=== PATIENT | female | born 1985 | race Caucasian/White ===

== ENCOUNTER 2016-10-16 10:43 | Emergency (ER) | payer MEDICAID ==
--- NOTE | 2016-10-16 11:52 | Emergency Department Record ---
History of Present Illness - General Chief complaint: Extremity Problem Stated complaint: RIGHT ARM PAIN Time Seen by Provider: 10/16/16 11:07 Source: Patient, RN notes reviewed Mode of Arrival: Ambulatory - History of Present Illness Initial comments: right elbow pain and she is doing heavy lifting at work. Onset/Timin -: Week(s) Location: Right, Elbow, Forearm History of Same: No Radiation: Proximal, Distal Severity scale (1-10): 5 Quality: Sharp Consistency: Constant Improves with: Immobilization Worsens with: Other Associated Symptoms: Denies other symptoms - Related Data Home Medications Medication Instructions Recorded Confirmed Last Taken Albuterol Sulfate [Proventil Hfa] 1 - 2 puff INH .EVERY 4-6 HOURS PRN 10/20/14 10/16/16 05/07/15 Esomeprazole Magnesium [Nexium] 40 mg PO DAILY 10/16/16 10/16/16 Unknown Previous Rx's Medication Instructions Recorded Naproxen [Naprosyn] 500 mg PO Q12H #20 tab. 10/16/16 Allergies Allergy/AdvReac Type Severity Reaction Status Date / Time No Known Drug Allergies Allergy Verified 10/16/16 10:52 Travel Screening - Travel/Exposure Within Last 30 Days Have you traveled within the last 30 days?: No Review of Systems Reviewed: No additional complaints except as noted below Constitutional: Reports: As per HPI. Denies: Chills, Fever, Malaise, Night sweats, Weakness, Weight change Eyes: Reports: As per HPI. Denies: Eye discharge, Eye pain, Photophobia, Vision change ENT: Reports: As per HPI. Denies: Congestion, Dental pain, Ear pain, Epistaxis , Hearing loss, Throat pain Respiratory: Reports: As per HPI. Denies: Cough, Dyspnea, Hemoptysis, Stridor, Wheezes Cardiovascular: Reports: As per HPI. Denies: Arrhythmia, Chest pain, Dyspnea on exertion, Edema, Murmurs, Orthopnea, Palpitations, Paroxysmal nocturnal dyspnea, Rheumatic Fever, Syncope Endocrine: Reports: As per HPI. Denies: Fatigue, Heat or cold intolerance, Polydipsia, Polyuria Gastrointestinal: Reports: As per HPI. Denies: Abdominal pain, Constipation, Diarrhea, Hematemesis, Hematochezia, Melena, Nausea, Vomiting Genitourinary: Reports: As per HPI. Denies: Abnormal menses, Discharge, Dyspareunia, Dysuria, Frequency, Hematuria, Incontinence, Retention, Urgency Musculoskeletal: Reports: As per HPI, Arthralgia (right elbow). Denies: Back pain, Gout, Joint swelling, Myalgia, Neck pain Skin: Reports: As per HPI. Denies: Bruising, Change in color, Change in hair/ nails, Lesions, Pruritus, Rash Neurological: Reports: As per HPI. Denies: Abnormal gait, Confusion, Headache, Numbness, Paresthesias, Seizure, Tingling, Tremors, Vertigo, Weakness Psychiatric: Reports: As per HPI. Denies: Anxiety, Auditory hallucinations, Depression, Homicidal thoughts, Suicidal thoughts, Visual hallucinations Hematological/Lymphatic: Reports: As per HPI. Denies: Anemia, Blood Clots, Easy bleeding, Easy bruising, Swollen glands Past Medical History - SOCIAL HISTORY Smoking Status: Light tobacco smoker (<10/day) Alcohol Use: None Drug Use: None - RESPIRATORY Hx Respiratory Disorders: Yes Hx Asthma: Yes - CARDIOVASCULAR Hx Cardio Disorders: No - NEURO Hx Neuro Disorders: No - GI Hx GI Disorders: Yes Hx Diverticulitis: Yes Hx Reflux: Yes - Hx Genitourinary Disorders: No - ENDOCRINE Hx Endocrine Disorders: No - MUSCULOSKELETAL Hx Musculoskeletal Disorders: No - PSYCH Hx Psych Problems: No - HEMATOLOGY/ONCOLOGY Hx Hematology/Oncology Disorders: No Family Medical History Any Significant Family History?: Yes Hx HTN: Mother Physical Exam - General General Appearance: Alert, Oriented x3, Cooperative, No acute distress - Head Head exam: Normal inspection - Eye Eye exam: Normal appearance, PERRL Pupils: Normal accommodation - ENT ENT exam: Normal exam, Mucous membranes moist, Normal external ear exam, Normal orophraynx, TM's normal bilaterally Ear exam: Normal external inspection. negative: External canal tenderness Nasal Exam: Normal inspection. negative: Discharge, Sinus tenderness Mouth exam: Normal external inspection, Tongue normal Teeth exam: Normal inspection. negative: Dental caries Throat exam: Normal inspection. negative: Tonsillar erythema, Tonsillar exudate - Neck Neck exam: Normal inspection, Full ROM. negative: Tenderness - Respiratory Respiratory exam: Normal lung sounds bilaterally. negative: Respiratory distress - Cardiovascular Cardiovascular Exam: Regular rate, Normal rhythm, Normal heart sounds - GI/Abdominal GI/Abdominal exam: Soft, Normal bowel sounds. negative: Tenderness - Rectal Rectal exam: Deferred - exam: Deferred - Extremities Extremities exam: Normal inspection, Full ROM, Normal capillary refill, Tenderness (pain located on the lateral epicondylar area) - Back Back exam: Reports: Normal inspection, Full ROM. Denies: Muscle spasm, Rash noted, Tenderness - Neurological Neurological exam: Alert, Normal gait, Oriented X3, Reflexes normal - Psychiatric Psychiatric exam: Normal affect, Normal mood - Skin Skin exam: Dry, Intact, Normal color, Warm Course Vital Signs 10/16/16 10:46 Temperature 98.7 F Pulse Rate 82 Respiratory 20 Rate Blood Pressure 145/92 Pulse Ox 100 Disposition Clinical Impression: Left elbow tendinitis Disposition: Home, Self-Care Condition: (1) Good Instructions: Tendinitis (ED) Additional Instructions: naprosyn twice a day follow up with family Prescriptions: Naproxen [Naprosyn] 500 mg PO Q12H #20 tab.dr Forms: Patient Portal Access Time of Disposition: 11:52
--- NOTE | 2016-10-18 09:54 | RADIOLOGY REPORT ---
EXAM: RIGHT ELBOW, THREE VIEWS HISTORY: LIFTING INJURY THREE WEEKS AGO, RIGHT ELBOW PAIN. TECHNIQUE: Three views of the right elbow were obtained. Comparison: None. Encounter: Initial. FINDINGS: No bone or joint abnormality. IMPRESSION: NEGATIVE RIGHT ELBOW EXAMINATION. JOB NUMBER: [id number] MTDD
== END 2016-10-16 12:06 | disposition home or self-care (01) ==
LOC: ER 10:43
DX: M77.12 Lateral epicondylitis, left elbow (principal)
CPT/HCPCS: 99283

== ENCOUNTER 2016-10-28 17:53 | Emergency (ER) | payer MEDICAID ==
[2016-10-28] MEDS ORDERED: ONDANSETRON HCL IV 4 MG/2 ML VIAL IVP ONE (18:43)
[2016-10-28] MEDS ORDERED: MORPHINE SULFATE 5 MG/ML PFS IVP ONE (18:43)
[2016-10-28] MEDS ORDERED: 0.9 % SODIUM CHLORIDE 1000ML 1,000 ML IV SCH (18:45)
--- NOTE | 2016-10-28 18:48 | Emergency Department Record ---
History of Present Illness - General Chief Complaint: Abdominal Pain Stated Complaint: L ABD PAIN Time Seen by Provider: 10/28/16 18:40 Source: Patient Mode of Arrival: Ambulatory Limitations: No limitations - History of Present Illness Initial Comments: 31 yo female presents to ED with a CC of loose stools that began earlier today followed by the onset of "sharp", LLQ pain. Patient reports the pain has been present for 3 hours, reports a history of diverticulitis 1 year ago, but was not as painful. Patient is s/p abhishek. Patient denies fevers, chills, nausea, or vomiting symptoms. Patient reports a history significant for diverticulitis and GERD. -: Awoke with symptoms Location: LLQ Radiation: None Migration to: No migration Severity: Severe Quality: Sharp, Other Consistency: Constant Improves With: Nothing Worsens With: Eating, Other (urination) Associated Symptoms: Diarrhea - Related Data LMP (females 10-50): Unknown Patient : No Home Medications Medication Instructions Recorded Confirmed Last Taken Albuterol Sulfate [Proventil Hfa] 1 - 2 puff INH .EVERY 4-6 HOURS PRN 10/20/14 10/28/16 05/07/15 Esomeprazole Magnesium [Nexium] 40 mg PO DAILY 10/16/16 10/28/16 Unknown Previous Rx's Medication Instructions Recorded Ciprofloxacin HCl [Cipro] 500 mg PO Q12HR #20 tablet 10/28/16 Metronidazole [Flagyl] 500 mg PO TID #30 tablet 10/28/16 Ondansetron [Zofran Odt] 4 mg PO Q6H PRN #20 tab.rapdis 10/28/16 Allergies Allergy/AdvReac Type Severity Reaction Status Date / Time No Known Drug Allergies Allergy Verified 10/28/16 18:23 Travel Screening - Travel/Exposure Within Last 30 Days Have you traveled within the last 30 days?: No - Travel/Exposure Within Last Year Have you traveled outside the [place] in the last year?: No - Additonal Travel Details Have you been exposed to anyone with a communicable illness?: No - Travel Symptoms Symptom Screening: None Review of Systems Constitutional: Denies: Chills, Fever, Malaise, Night sweats Eyes: Denies: Eye discharge, Eye pain ENT: Denies: Congestion, Epistaxis, Hearing loss Respiratory: Denies: Cough, Dyspnea Cardiovascular: Denies: Chest pain, Dyspnea on exertion Endocrine: Denies: Fatigue, Heat or cold intolerance Gastrointestinal: Reports: Abdominal pain, Diarrhea. Denies: Nausea, Vomiting Genitourinary: Denies: Frequency, Hematuria, Incontinence, Retention Musculoskeletal: Denies: Arthralgia, Back pain, Gout, Joint swelling Skin: Denies: Bruising, Change in color Neurological: Denies: Abnormal gait, Confusion, Headache, Seizure Psychiatric: Denies: Anxiety Hematological/Lymphatic: Denies: Anemia, Blood Clots Past Medical History - SOCIAL HISTORY Smoking Status: Light tobacco smoker (<10/day) Alcohol Use: None Drug Use: None - RESPIRATORY Hx Respiratory Disorders: Yes Hx Asthma: Yes - CARDIOVASCULAR Hx Cardio Disorders: No - NEURO Hx Neuro Disorders: No - GI Hx GI Disorders: Yes Hx Diverticulitis: Yes Hx Reflux: Yes - Hx Genitourinary Disorders: No - ENDOCRINE Hx Endocrine Disorders: No - MUSCULOSKELETAL Hx Musculoskeletal Disorders: No - PSYCH Hx Psych Problems: No - HEMATOLOGY/ONCOLOGY Hx Hematology/Oncology Disorders: No Family Medical History Any Significant Family History?: Yes Hx HTN: Mother Physical Exam - General General Appearance: Alert, Oriented x3, Cooperative, Moderate distress (tearful on exam due to pain symptoms) Limitations: No limitations - Head Head exam: Atraumatic, Normocephalic, Normal inspection Head exam detail: negative: Abrasion, Contusion, Goddard's sign, General tenderness, Hematoma, Laceration - Eye Eye exam: Normal appearance. negative: Conjunctival injection, Periorbital swelling, Periorbital tenderness, Scleral icterus - ENT Ear exam: negative: Auricular hematoma, Auricular trauma Nasal Exam: negative: Active bleeding, Discharge, Dried blood, Foreign body Mouth exam: negative: Drooling, Laceration, Muffled voice, Tongue elevation - Neck Neck exam: Normal inspection. negative: Meningismus, Tenderness - Respiratory Respiratory exam: Normal lung sounds bilaterally. negative: Respiratory distress, Rhonchi, Stridor, Wheezes - Cardiovascular Cardiovascular Exam: Regular rate, Normal rhythm, Normal heart sounds - GI/Abdominal GI/Abdominal exam: Soft, Tenderness (TTP mid-left abdomen, no reboound or guarding present). negative: Pulsatile mass, Rebound, Rigid - Rectal Rectal exam: Deferred - exam: Deferred - Extremities Extremities exam: Normal inspection. negative: Pedal edema, Tenderness - Back Back exam: Denies: CVA tenderness (R), CVA tenderness (L) - Neurological Neurological exam: Alert, Normal gait, Oriented X3 - Psychiatric Psychiatric exam: Normal affect, Normal mood - Skin Skin exam: Normal color. negative: Abrasion Type of lesion: negative: abrasion Course Vital Signs 10/28/16 18:21 Temperature 97.5 F L Pulse Rate 76 Respiratory 18 Rate Blood Pressure 118/82 Pulse Ox 99 - Reevaluation(s) Reevaluation #1: 10/28/16 19:35 CT Abdomen and Pelvis: Acute diverticulitis of the descending/sigmoid colon, no free air, no abscess. Reevaluation #2: 10/28/16 19:49 Labs reviewed, WBC 17.9, labs are otherwise grossly unremarkable for an acute process. UA is pending at this time. 10/28/16 20:35 Reevaluation #3: 10/28/16 20:34 Antibiotics have completed infusing, and the patient has been updated on all results. Patient reports that she is feeling much better and appears visibly more comfortable on re-examination. Patient appears stable for outpatient treatment of her diverticulitis symptoms. Medical Decision Making - Lab Data Result diagrams: 10/28/16 18:50 10/28/16 18:50 Disposition Disposition: Discharge Clinical Impression: Diverticulitis Qualifiers: Diverticulitis site: large intestine Diverticulitis bleeding: without bleeding Diverticulitis complication: without perforation or abscess Qualified Code(s): K57.32 - Diverticulitis of large intestine without perforation or abscess without bleeding Disposition: Home, Self-Care Condition: (2) Stable Instructions: Diverticulitis (ED) Additional Instructions: Return to ED if your symptoms worsen or if you have any concerns. Flagyl and Cipro as directed. Follow-up with your family doctor in 1-3 days as directed. Prescriptions: Ciprofloxacin HCl [Cipro] 500 mg PO Q12HR #20 tablet Metronidazole [Flagyl] 500 mg PO TID #30 tablet Ondansetron [Zofran Odt] 4 mg PO Q6H PRN #20 tab.rapdis PRN Reason: Nausea/Vomiting Forms: Patient Portal Access Time of Disposition: 20:35
[2016-10-28 19:16] LABS: BASO % 0.2 % (0-6); EOS % 0.9 % (0-6); GRAN % 68.5 % (47-80); HEMATOCRIT 44.2 % (35.0-47.0); HEMOGLOBIN 14.9 gm/dl (11.6-16.0); MEAN CELL VOLUME 91.7 fl (81-97); MEAN CORPUSCULAR HEMOGLOBIN 30.9 pg (27-33); MEAN CORPUSCULAR HGB CONC 33.7 g/dl (32-36); MEAN PLATELET VOLUME 10.3 fl (7.4-10.4); MONO % 9.4 % (0-9); PLATELET COUNT 306 K/uL (130-400); RED BLOOD COUNT 4.82 M/uL (3.80-5.40); RED CELL DISTRIBUTION WIDTH 13.5 % (11.5-14.5); WHITE BLOOD COUNT W/O DIFF 17.6 K/uL (4.2-12.2)
[2016-10-28] MEDS ORDERED: CIPROFLOXACIN LACTATE/D5W 400 MG in DEXTROSE 1 BAG IVPB ONE (19:36)
[2016-10-28] MEDS ORDERED: METRONIDAZOLE IVPB 500 MG in SODIUM CHLORIDE 1 BAG IVPB ONE (19:36)
[2016-10-28 19:40] LABS: ALB/GLOB RATIO 1.4 (1.1-1.8); ALBUMIN 4.4 gm/dL (3.5-5.0); ALKALINE PHOSPHATASE 79 U/L (38-126); ALT/SGPT 39 U/L (9-52); AST/SGOT 18 U/L (14-36); BLOOD UREA NITROGEN 20 mg/dL (7-17); CREATININE 0.8 mg/dL (0.52-1.04); EST GLOMERULAR FILTRATION RATE > 60 ml/min; GLUCOSE,RANDOM 89 mg/dL (70-110); LIPASE 25 U/L (23-300); TOTAL PROTEIN 7.5 gm/dL (6.3-8.2)
--- NOTE | 2016-10-31 11:05 | CT SCAN REPORT ---
EXAM: CT OF THE ABDOMEN AND PELVIS HISTORY: LEFT LOWER QUADRANT PAIN. TECHNIQUE: CT of the abdomen and pelvis was performed following IV administration of 100 ml of Omnipaque 300 contrast. Lack of oral contrast limits evaluation of bowel. Comparison: Prior CT from 11/01/13. FINDINGS: Limited evaluation of the lung bases is unremarkable. The osseous structures are grossly intact. Status post cholecystectomy. The liver, spleen , adrenal glands, pancreas, and kidneys are unremarkable. Wall thickening with inflammatory changes of the descending and sigmoid colon. Multiple diverticula are present. Findings are consistent with acute diverticulitis. Thickening of the left lateral conal fascia. No discreet or defined abscess. No free air or free fluid. IUD in place. Normal appendix. IMPRESSION: ACUTE DESCENDING/SIGMOID COLON DIVERTICULITIS. NO DISCREET ABSCESS. RECOMMEND CONTINUED FOLLOW-UP TO INSURE RESOLUTION. JOB NUMBER: [id number] MTDD
== END 2016-10-28 21:38 | disposition home or self-care (01) ==
LOC: ER 17:53
DX: K57.32 Diverticulitis of large intestine without perforation or abscess without bleeding (principal); R19.7 Diarrhea, unspecified
CPT/HCPCS: 99284 ×2; 96365; 96375; 96361; 96368; 83690; 85025; 80053; 74177; Q9967; J0744; J2405; J2270; J7030

== ENCOUNTER 2017-02-21 16:28 | Emergency (ER) | payer MEDICAID ==
--- NOTE | 2017-02-21 16:56 | Emergency Department Record ---
History of Present Illness - General Chief Complaint: Abdominal Pain Stated Complaint: LEFT SIDE PAIN Time Seen by Provider: 02/21/17 16:37 Source: Patient Mode of Arrival: Ambulatory Limitations: No limitations - History of Present Illness Initial Comments: The patient is here due to L flank and abdominal pain for about 24 hours. She is having abdominal cramping with the pain along with mild nausea and vomiting. She has a recent hx of Diverticulitis and it feels just like this. Her only abdominal surgery in a [facility]. Complaint: Abdominal pain Onset/Timin -: Days(s) Location: L Flank, LUQ Radiation: Back, L flank Severity: Mild Quality: Cramping Consistency: Constant Associated Symptoms: Denies other symptoms - Related Data LMP (females 10-50): other Patient : No Home Medications Medication Instructions Recorded Confirmed Last Taken Albuterol Sulfate [Proventil Hfa] 1 - 2 puff INH .EVERY 4-6 HOURS PRN 10/20/14 10/28/16 05/07/15 Esomeprazole Magnesium [Nexium] 40 mg PO DAILY 10/16/16 10/28/16 Unknown Previous Rx's Medication Instructions Recorded Ondansetron [Zofran Odt] 4 mg PO Q6H PRN #20 tab.rapdis 10/28/16 Amoxicillin/Potassium Clav 1 tab PO BID #20 tab 02/21/17 [Augmentin 875-125 Tablet] Ciprofloxacin HCl [Cipro] 500 mg PO Q12HR #14 tablet 02/21/17 Hydrocodone/Acetaminophen [[place] 1 each PO Q6H PRN #10 tablet 02/21/17 5-325 Tablet] Metronidazole [Flagyl] 500 mg PO TID #21 tablet 02/21/17 Ondansetron [Zofran Odt] 4 mg PO Q6H PRN #20 tab.rapdis 02/21/17 Ondansetron [Zofran Odt] 4 mg SL .Q4-6H PRN #12 tab.rapdis 02/21/17 Allergies Allergy/AdvReac Type Severity Reaction Status Date / Time No Known Drug Allergies Allergy Verified 10/28/16 18:23 Travel Screening - Travel/Exposure Within Last 30 Days Have you traveled within the last 30 days?: No - Travel/Exposure Within Last Year Have you traveled outside the [place] in the last year?: No - Additonal Travel Details Have you been exposed to anyone with a communicable illness?: No - Travel Symptoms Symptom Screening: None Review of Systems Constitutional: Denies: Chills, Fever Eyes: Denies: Eye discharge ENT: Denies: Congestion Respiratory: Denies: Cough, Dyspnea Past Medical History - SOCIAL HISTORY Smoking Status: Light tobacco smoker (<10/day) Alcohol Use: Rare Drug Use: None - RESPIRATORY Hx Respiratory Disorders: Yes Hx Asthma: Yes - CARDIOVASCULAR Hx Cardio Disorders: No - NEURO Hx Neuro Disorders: No - GI Hx GI Disorders: Yes Hx Diverticulitis: Yes Hx Reflux: Yes - Hx Genitourinary Disorders: No - ENDOCRINE Hx Endocrine Disorders: No - MUSCULOSKELETAL Hx Musculoskeletal Disorders: No - PSYCH Hx Psych Problems: No - HEMATOLOGY/ONCOLOGY Hx Hematology/Oncology Disorders: No Family Medical History Any Significant Family History?: No Hx HTN: Mother Physical Exam - General General Appearance: Alert, Oriented x3, Cooperative, No acute distress - Head Head exam: Atraumatic, Normocephalic - Eye Eye exam: Normal appearance, PERRL - ENT ENT exam: Normal exam, Mucous membranes moist, Normal orophraynx Ear exam: Normal external inspection, External canal tenderness Nasal Exam: negative: Discharge, Sinus tenderness Teeth exam: negative: Dental caries Throat exam: negative: Tonsillar erythema, Tonsillar exudate - Neck Neck exam: Normal inspection, Full ROM. negative: Tenderness - Respiratory Respiratory exam: Normal lung sounds bilaterally. negative: Respiratory distress - Cardiovascular Cardiovascular Exam: Regular rate, Normal rhythm, Normal heart sounds - GI/Abdominal GI/Abdominal exam: Soft, Tenderness (There is mild L sided mid abdominal tenderness.). negative: Distended, Rebound, Rigid - Extremities Extremities exam: Normal inspection, Full ROM, Normal capillary refill. negative: Tenderness - Neurological Neurological exam: Alert, Normal gait. negative: Abnormal gait Course Vital Signs 02/21/17 16:43 Temperature 98.4 F Pulse Rate [ 80 Pulse Ox Probe] Respiratory 16 Rate Blood Pressure 146/73 [Left Arm] Pulse Ox 98 - Reevaluation(s) Reevaluation #1: The patient is doing well at this time. She is resting comfortably with no new complaints. We are waiting on the CT presently. I did discuss the presumed plan for the patient and the need for F/U. 02/21/17 18:03 02/21/17 18:06 Reevaluation #2: The patient is still doing well. She denies any AP presently and is nontender on exam. 02/21/17 18:25 Medical Decision Making - Data Complexity MDM Data: Labs Ordered and/or Reviewed - Lab Data Result diagrams: 02/21/17 17:10 02/21/17 17:10 Disposition Disposition: Discharge Clinical Impression: Diverticulitis Qualifiers: Diverticulitis site: unspecified part of intestinal tract Diverticulitis bleeding: without bleeding Diverticulitis complication: unspecified complication status Qualified Code(s): K57.92 - Diverticulitis of intestine, part unspecified, without perforation or abscess without bleeding Disposition: Home, Self-Care Condition: (1) Good Instructions: Diverticulitis (ED) Additional Instructions: Please take the Cipro, Flagyl, and Zofran as needed. Please see your General Surgeon next week for recheck. Return to the ER for any increased pain, fever, or vomiting. Prescriptions: Ciprofloxacin HCl [Cipro] 500 mg PO Q12HR #14 tablet Amoxicillin/Potassium Clav [Augmentin 875-125 Tablet] 1 tab PO BID #20 tab Hydrocodone/Acetaminophen [[place] 5-325 Tablet] 1 each PO Q6H PRN #10 tablet PRN Reason: Pain - Moderate (5-7) Metronidazole [Flagyl] 500 mg PO TID #21 tablet Ondansetron [Zofran Odt] 4 mg SL .Q4-6H PRN #12 tab.rapdis PRN Reason: Nausea Ondansetron [Zofran Odt] 4 mg PO Q6H PRN #20 tab.rapdis PRN Reason: Nausea Forms: Patient Portal Access Time of Disposition: 18:07 Quality - Quality Measures Quality Measures: N/A - Blood Pressure Screening View Details: Yes Blood Pressure Classification: Pre-Hypertensive BP Reading Systolic Measurement: 120 Diastolic Measurement: 77 Screening for High Blood Pressure: < Pre-Hypertensive BP, F/U Documented > [ [id number]] Pre-Hypertensive Follow-up Interventions: Follow-up with rescreen every year.
[2017-02-21] MEDS: 0.9 % SODIUM CHLORIDE 1,000 ML BAG IV ONE (17:06)
[2017-02-21] MEDS: ONDANSETRON HCL IV 4 MG/2 ML VIAL IV ONE (17:06)
[2017-02-21 17:16] LABS: URINE APPEARANCE SL CLOUDY; URINE BILIRUBIN NEGATIVE (NEGATIVE); URINE BLOOD NEGATIVE (NEGATIVE); URINE COLOR YELLOW; URINE GLUCOSE (UA) NEGATIVE (NEGATIVE); URINE KETONE NEGATIVE (NEGATIVE); URINE LEUKOCYTE ESTERASE NEGATIVE (NEGATIVE); URINE NITRITE NEGATIVE (NEGATIVE); URINE PROTEIN NEGATIVE (NEGATIVE); URINE UROBILINOGEN 0.2 E.U./dL (0.20 - 1.00)
[2017-02-21 17:21] LABS: BASO % 0.4 % (0-6); GRAN % 59.5 % (47-80); HEMATOCRIT 45.6 % (35.0-47.0); HEMOGLOBIN 15.4 gm/dl (11.6-16.0); LYMPH % 26.7 % (16-45); MEAN CELL VOLUME 90.1 fl (81-97); MEAN CORPUSCULAR HEMOGLOBIN 30.4 pg (27-33); MEAN CORPUSCULAR HGB CONC 33.8 g/dl (32-36); MEAN PLATELET VOLUME 10.4 fl (7.4-10.4); MONO % 9.4 % (0-9); PLATELET COUNT 306 K/uL (130-400); RED BLOOD COUNT 5.06 M/uL (3.80-5.40); RED CELL DISTRIBUTION WIDTH 13.1 % (11.5-14.5); WHITE BLOOD COUNT W/O DIFF 10.7 K/uL (4.2-12.2)
[2017-02-21 17:28] LABS: ANION GAP 10.9 (7-16); BLOOD UREA NITROGEN 12 mg/dL (7-17); CARBON DIOXIDE 28.1 mmol/L (22-30); CREATININE 0.8 mg/dL (0.52-1.04); EST GLOMERULAR FILTRATION RATE > 60 ml/min; GLUCOSE,RANDOM 90 mg/dL (70-110)
[2017-02-21] MEDS: KETOROLAC 30 MG/ML VIAL IVP ONE (17:30)
[2017-02-21] MEDS: ERTAPENEM SODIUM 1 G in 0.9 % SODIUM CHLORIDE 100ML 100 ML IVPB ONE (18:14)
--- NOTE | 2017-02-21 20:34 | Emergency Department Record ---
History of Present Illness - General Chief Complaint: Abdominal Pain Stated Complaint: LEFT SIDE PAIN Time Seen by Provider: 02/21/17 16:37 Source: Patient Mode of Arrival: Ambulatory Limitations: No limitations - History of Present Illness MD Complaint: Abdominal pain Onset/Timin -: Days(s) Location: L Flank, LUQ Radiation: Back, L flank Severity: Mild Quality: Cramping Consistency: Constant Associated Symptoms: Denies other symptoms - Related Data LMP (females 10-50): other Patient : No Home Medications Medication Instructions Recorded Confirmed Last Taken Albuterol Sulfate [Proventil Hfa] 1 - 2 puff INH .EVERY 4-6 HOURS PRN 10/20/14 10/28/16 05/07/15 Esomeprazole Magnesium [Nexium] 40 mg PO DAILY 10/16/16 10/28/16 Unknown Previous Rx's Medication Instructions Recorded Ondansetron [Zofran Odt] 4 mg PO Q6H PRN #20 tab.rapdis 10/28/16 Amoxicillin/Potassium Clav 1 tab PO BID #20 tab 02/21/17 [Augmentin 875-125 Tablet] Ciprofloxacin HCl [Cipro] 500 mg PO Q12HR #14 tablet 02/21/17 Hydrocodone/Acetaminophen [[place] 1 each PO Q6H PRN #10 tablet 02/21/17 5-325 Tablet] Metronidazole [Flagyl] 500 mg PO TID #21 tablet 02/21/17 Ondansetron [Zofran Odt] 4 mg PO Q6H PRN #20 tab.rapdis 02/21/17 Ondansetron [Zofran Odt] 4 mg SL .Q4-6H PRN #12 tab.rapdis 02/21/17 Allergies Allergy/AdvReac Type Severity Reaction Status Date / Time No Known Drug Allergies Allergy Verified 10/28/16 18:23 Travel Screening - Travel/Exposure Within Last 30 Days Have you traveled within the last 30 days?: No - Travel/Exposure Within Last Year Have you traveled outside the [place] in the last year?: No - Additonal Travel Details Have you been exposed to anyone with a communicable illness?: No - Travel Symptoms Symptom Screening: None Review of Systems Constitutional: Denies: Chills, Fever Eyes: Denies: Eye discharge ENT: Denies: Congestion Respiratory: Denies: Cough, Dyspnea Past Medical History - SOCIAL HISTORY Smoking Status: Light tobacco smoker (<10/day) Alcohol Use: Rare Drug Use: None - RESPIRATORY Hx Respiratory Disorders: Yes Hx Asthma: Yes - CARDIOVASCULAR Hx Cardio Disorders: No - NEURO Hx Neuro Disorders: No - GI Hx GI Disorders: Yes Hx Diverticulitis: Yes Hx Reflux: Yes - Hx Genitourinary Disorders: No - ENDOCRINE Hx Endocrine Disorders: No - MUSCULOSKELETAL Hx Musculoskeletal Disorders: No - PSYCH Hx Psych Problems: No - HEMATOLOGY/ONCOLOGY Hx Hematology/Oncology Disorders: No Family Medical History Any Significant Family History?: No Hx HTN: Mother Physical Exam - General Limitations: No limitations Course Vital Signs 02/21/17 02/21/17 16:43 19:04 Temperature 98.4 F 98.4 F Pulse Rate [ 80 69 Pulse Ox Probe] Respiratory 16 16 Rate Blood Pressure 146/73 110/73 [Left Arm] Pulse Ox 98 100 - Reevaluation(s) Reevaluation #1: 02/21/17 20:29 Patient was updated on all results thus far. CT Abdomen and Pelvis: Overall improvement in diverticulitis of the descending and sigmoid colon with residual thick-walled appearance of sigmoid colon, may represent diverticulitis vs. incomplete distention. I discussed the patient's CT findings with her and offered admission vs. transfer for further evaluation, patient reports that her symptoms are milder than her previous flare-ups and that she was trying to treat her symptoms earlier. As a result, she reports that she is well enough to be treated as an outpatient. Patient reports previous issues with Flagyl, will treat with Augmentin as an outpatient. Patient agrees with the plan as discussed. Medical Decision Making - Lab Data Result diagrams: 02/21/17 17:10 02/21/17 17:10 Lab Results 02/21/17 02/21/17 02/21/17 Range/Units 17:10 17:10 17:10 WBC 10.7 (4.2-12.2) K/uL RBC 5.06 (3.80-5.40) M/uL Hgb 15.4 (11.6-16.0) gm/dl Hct 45.6 (35.0-47.0) % MCV 90.1 (81-97) fl MCH 30.4 (27-33) pg MCHC 33.8 (32-36) g/dl RDW 13.1 (11.5-14.5) % Plt Count 306 (130-400) K/uL MPV 10.4 (7.4-10.4) fl Gran % 59.5 (47-80) % Lymphocytes % 26.7 (16-45) % Monocytes % 9.4 H (0-9) % Eosinophils % 4.0 (0-6) % Basophils % 0.4 (0-6) % Sodium 141 (136-145) mmol/L Potassium 4.7 (3.5-5.1) mmol/L Chloride 102 (98-107) mmol/L Carbon Dioxide 28.1 (22-30) mmol/L Anion Gap 10.9 (7-16) BUN 12 (7-17) mg/dL Creatinine 0.8 (0.52-1.04) mg/dL Estimated GFR > 60 ml/min Random Glucose 90 (70-110) mg/dL Calcium 9.6 (8.5-10.1) mg/dL Urine Color Yellow Urine Appearance Sl cloudy Urine pH 6.5 (5.0-8.0) Ur Specific [place] 1.020 (1.002-1.030) Urine Protein Negative (NEGATIVE) Urine Glucose (UA) Negative (NEGATIVE) Urine Ketones Negative (NEGATIVE) Urine Blood Negative (NEGATIVE) Urine Nitrite Negative (NEGATIVE) Urine Bilirubin Negative (NEGATIVE) Urine Urobilinogen 0.2 (0.20 - 1.00) E.U./dL Ur Leukocyte Esterase Negative (NEGATIVE) Urine HCG, Qual (NEGATIVE) 02/21/17 Range/Units 17:10 WBC (4.2-12.2) K/uL RBC (3.80-5.40) M/uL Hgb (11.6-16.0) gm/dl Hct (35.0-47.0) % MCV (81-97) fl MCH (27-33) pg MCHC (32-36) g/dl RDW (11.5-14.5) % Plt Count (130-400) K/uL MPV (7.4-10.4) fl Gran % (47-80) % Lymphocytes % (16-45) % Monocytes % (0-9) % Eosinophils % (0-6) % Basophils % (0-6) % Sodium (136-145) mmol/L Potassium (3.5-5.1) mmol/L Chloride (98-107) mmol/L Carbon Dioxide (22-30) mmol/L Anion Gap (7-16) BUN (7-17) mg/dL Creatinine (0.52-1.04) mg/dL Estimated GFR ml/min Random Glucose (70-110) mg/dL Calcium (8.5-10.1) mg/dL Urine Color Urine Appearance Urine pH (5.0-8.0) Ur Specific [place] (1.002-1.030) Urine Protein (NEGATIVE) Urine Glucose (UA) (NEGATIVE) Urine Ketones (NEGATIVE) Urine Blood (NEGATIVE) Urine Nitrite (NEGATIVE) Urine Bilirubin (NEGATIVE) Urine Urobilinogen (0.20 - 1.00) E.U./dL Ur Leukocyte Esterase (NEGATIVE) Urine HCG, Qual Negative (NEGATIVE) Disposition Disposition: Discharge Clinical Impression: Diverticulitis Qualifiers: Diverticulitis site: unspecified part of intestinal tract Diverticulitis bleeding: without bleeding Diverticulitis complication: unspecified complication status Qualified Code(s): K57.92 - Diverticulitis of intestine, part unspecified, without perforation or abscess without bleeding Disposition: Home, Self-Care Condition: (1) Good Instructions: Diverticulitis (ED) Additional Instructions: Please take the Cipro, Flagyl, and Zofran as needed. Please see your General Surgeon next week for recheck. Return to the ER for any increased pain, fever, or vomiting. Prescriptions: Ciprofloxacin HCl [Cipro] 500 mg PO Q12HR #14 tablet Amoxicillin/Potassium Clav [Augmentin 875-125 Tablet] 1 tab PO BID #20 tab Hydrocodone/Acetaminophen [[place] 5-325 Tablet] 1 each PO Q6H PRN #10 tablet PRN Reason: Pain - Moderate (5-7) Metronidazole [Flagyl] 500 mg PO TID #21 tablet Ondansetron [Zofran Odt] 4 mg SL .Q4-6H PRN #12 tab.rapdis PRN Reason: Nausea Ondansetron [Zofran Odt] 4 mg PO Q6H PRN #20 tab.rapdis PRN Reason: Nausea Forms: Patient Portal Access Time of Disposition: 20:34 Quality - Quality Measures Quality Measures: N/A - Blood Pressure Screening Blood Pressure Classification: Pre-Hypertensive BP Reading Systolic Measurement: 120 Diastolic Measurement: 77 Screening for High Blood Pressure: < Pre-Hypertensive BP, F/U Documented > [ G8950] Pre-Hypertensive Follow-up Interventions: Referral to alternative/primary care provider.
--- NOTE | 2017-02-24 10:54 | CT SCAN REPORT ---
EXAM: EMERGENCY CT OF THE ABDOMEN AND PELVIS HISTORY: LEFT SIDED ABDOMINAL PAIN FOR TWO DAYS. CHOLECYSTECTOMY. TECHNIQUE: Axial CT scan of the abdomen and pelvis was performed following both oral and IV contrast administration, utilizing a dose of 94 ml of Omnipaque 300 as the IV contrast. Comparison: Prior CT of the abdomen and pelvis 10/28/16. FINDINGS: Surgical clips in the gallbladder fossa again seen consistent with cholecystectomy. No definite hepatic, splenic, adrenal, pancreatic, or renal mass identified. T-shaped IUD in the uterus, also present previously. Diverticulosis seen in the left side of the colon, however, the changes of acute diverticulitis seen in the lower descending/sigmoid colon previously are not identified as such today. Mild relative thickening of the wall of portions of the sigmoid colon without any adjacent inflammatory type change today may simply be due to incomplete distention. Oral contrast given has passed throughout the small bowel well into the colon with no small bowel obstruction evident. The appendix is visualized and appears negative. The lung bases appear clear. No free intraperitoneal air or free intraperitoneal fluid identified. There is probably spina bifida of T11, also present previously. IMPRESSION: 1. DIVERTICULOSIS LEFT SIDE OF THE COLON, BUT PREVIOUSLY SEEN ASSOCIATED FINDINGS OF ACUTE DIVERTICULITIS BACK ON 10/28/16 HAVE REGRESSED. SOME MILD THICK WALLED APPEARANCE OF A PORTION OF THE SIGMOID COLON SEEN TODAY ARE NONSPECIFIC, BUT MAY JUST BE DUE TO INCOMPLETE DISTENTION DESCRIBED ABOVE. 2. IUD IN THE UTERUS AGAIN EVIDENT. 3. POSTOP CHOLECYSTECTOMY. 4. NO APPENDICITIS EVIDENT. NO FREE AIR OR FREE FLUID SEEN. JOB NUMBER: [id number] MTDD
== END 2017-02-21 20:46 | disposition home or self-care (01) ==
LOC: ER 16:28
DX: K57.92 Diverticulitis of intestine, part unspecified, without perforation or abscess without bleeding (principal)
CPT/HCPCS: 99284 ×2; 96374; 96375; 85025; 80048; 81003; 81025; 74177; Q9967; J1335; J1885; J2405; J7030

== ENCOUNTER 2017-03-21 10:56 | Emergency (ER) | payer MEDICAID ==
[2017-03-21] MEDS: 0.9 % SODIUM CHLORIDE 1,000 ML BAG IV ONE (11:45)
[2017-03-21 11:46] LABS: BASO % 0.7 % (0-6); EOS % 3.1 % (0-6); GRAN % 63.1 % (47-80); HEMATOCRIT 47.7 % (35.0-47.0); HEMOGLOBIN 16.4 gm/dl (11.6-16.0); LYMPH % 25.9 % (16-45); MEAN CELL VOLUME 88.5 fl (81-97); MEAN CORPUSCULAR HEMOGLOBIN 30.4 pg (27-33); MEAN CORPUSCULAR HGB CONC 34.4 g/dl (32-36); MEAN PLATELET VOLUME 10.2 fl (7.4-10.4); MONO % 7.2 % (0-9); PLATELET COUNT 333 K/uL (130-400); RED BLOOD COUNT 5.39 M/uL (3.80-5.40); RED CELL DISTRIBUTION WIDTH 13.1 % (11.5-14.5); URINE APPEARANCE CLEAR; URINE BILIRUBIN NEGATIVE (NEGATIVE); URINE BLOOD NEGATIVE (NEGATIVE); URINE COLOR YELLOW; URINE GLUCOSE (UA) NEGATIVE (NEGATIVE); URINE KETONE NEGATIVE (NEGATIVE); URINE LEUKOCYTE ESTERASE NEGATIVE (NEGATIVE); URINE NITRITE NEGATIVE (NEGATIVE); URINE PROTEIN NEGATIVE (NEGATIVE); URINE UROBILINOGEN 0.2 E.U./dL (0.20 - 1.00); WHITE BLOOD COUNT W/O DIFF 13.7 K/uL (4.2-12.2)
[2017-03-21 11:48] LABS: HCG,QUALITATIVE URINE NEGATIVE (NEGATIVE)
[2017-03-21] MEDS: ONDANSETRON HCL IV 4 MG/2 ML VIAL IVP ONE (11:58)
[2017-03-21 11:59] LABS: ANION GAP 7.6 (7-16); BLOOD UREA NITROGEN 10 mg/dL (7-17); CARBON DIOXIDE 26.4 mmol/L (22-30); CREATININE 0.8 mg/dL (0.52-1.04); EST GLOMERULAR FILTRATION RATE > 60 ml/min; GLUCOSE,RANDOM 94 mg/dL (70-110)
[2017-03-21] MEDS: KETOROLAC 30 MG/ML VIAL IVP ONE (13:01)
--- NOTE | 2017-03-21 15:03 | Emergency Department Record ---
History of Present Illness - General Chief complaint: Nausea, Vomiting, Diarrhea Stated complaint: LOOSE STOOLS Time Seen by Provider: 03/21/17 11:26 Source: Patient Mode of Arrival: Ambulatory Limitations: No limitations - History of Present Illness Initial comments: pt has llq pain that feels like her previous diverticulitis. she has nausea. she did have 1 bout of diarrhea MD complaint: Abdominal pain, Diarrhea, Nausea Onset/Timin -: Week(s) Description of Vomiting: Watery Associated Abdominal Pain: Yes Location: LUQ, LLQ Radiation: None Severity: Moderate Severity scale (1-10): 8 Quality: Sharp, Stabbing Consistency: Intermittent Improves with: None Worsens with: None Associated Symptoms: Nausea/vomiting - Related Data Home Medications Medication Instructions Recorded Confirmed Last Taken Pantoprazole Sodium [Protonix] 20 mg PO DAILY 03/21/17 03/21/17 Unknown Previous Rx's Medication Instructions Recorded Ondansetron [Zofran Odt] 4 mg PO Q6H PRN #20 tab.rapdis 02/21/17 Amoxicillin/Potassium Clav 1 tab PO BID #20 tab 03/21/17 [Augmentin 875-125 Tablet] Docusate Sodium [Colace] 100 mg PO QHS #20 cap 03/21/17 Hydrocodone/Acetaminophen [[place] 1 each PO Q6HR #10 tablet 03/21/17 5-325 Tablet] Allergies Allergy/AdvReac Type Severity Reaction Status Date / Time No Known Drug Allergies Allergy Verified 03/21/17 11:00 Travel Screening - Travel/Exposure Within Last 30 Days Have you traveled within the last 30 days?: No Review of Systems Reviewed: No additional complaints except as noted below Constitutional: Reports: As per HPI. Denies: Chills, Fever, Malaise, Night sweats, Weakness, Weight change Eyes: Reports: As per HPI. Denies: Eye discharge, Eye pain, Photophobia, Vision change ENT: Reports: As per HPI. Denies: Congestion, Dental pain, Ear pain, Epistaxis , Hearing loss, Throat pain Respiratory: Reports: As per HPI. Denies: Cough, Dyspnea, Hemoptysis, Stridor, Wheezes Cardiovascular: Reports: As per HPI. Denies: Arrhythmia, Chest pain, Dyspnea on exertion, Edema, Murmurs, Orthopnea, Palpitations, Paroxysmal nocturnal dyspnea, Rheumatic Fever, Syncope Endocrine: Reports: As per HPI. Denies: Fatigue, Heat or cold intolerance, Polydipsia, Polyuria Gastrointestinal: Reports: As per HPI. Denies: Abdominal pain, Constipation, Diarrhea, Hematemesis, Hematochezia, Melena, Nausea, Vomiting Genitourinary: Reports: As per HPI. Denies: Abnormal menses, Discharge, Dyspareunia, Dysuria, Frequency, Hematuria, Incontinence, Retention, Urgency Musculoskeletal: Reports: As per HPI. Denies: Arthralgia, Back pain, Gout, Joint swelling, Myalgia, Neck pain Skin: Reports: As per HPI. Denies: Bruising, Change in color, Change in hair/ nails, Lesions, Pruritus, Rash Neurological: Reports: As per HPI. Denies: Abnormal gait, Confusion, Headache, Numbness, Paresthesias, Seizure, Tingling, Tremors, Vertigo, Weakness Psychiatric: Reports: As per HPI. Denies: Anxiety, Auditory hallucinations, Depression, Homicidal thoughts, Suicidal thoughts, Visual hallucinations Hematological/Lymphatic: Reports: As per HPI. Denies: Anemia, Blood Clots, Easy bleeding, Easy bruising, Swollen glands Past Medical History - SOCIAL HISTORY Smoking Status: Light tobacco smoker (<10/day) Alcohol Use: None Drug Use: None - RESPIRATORY Hx Respiratory Disorders: Yes Hx Asthma: Yes - CARDIOVASCULAR Hx Cardio Disorders: No - NEURO Hx Neuro Disorders: No - GI Hx GI Disorders: Yes Hx Diverticulitis: Yes Hx Reflux: Yes - Hx Genitourinary Disorders: No - ENDOCRINE Hx Endocrine Disorders: No - MUSCULOSKELETAL Hx Musculoskeletal Disorders: No - PSYCH Hx Psych Problems: No - HEMATOLOGY/ONCOLOGY Hx Hematology/Oncology Disorders: No Family Medical History Any Significant Family History?: Yes Hx HTN: Mother Physical Exam - General General Appearance: Alert, Oriented x3, Cooperative, Mild distress - Head Head exam: Normal inspection - Eye Eye exam: Normal appearance, PERRL, EOMI Pupils: Normal accommodation - ENT ENT exam: Normal exam, Mucous membranes moist, Normal external ear exam, Normal orophraynx Ear exam: Normal external inspection. negative: External canal tenderness Nasal Exam: Normal inspection. negative: Discharge, Sinus tenderness Mouth exam: Normal external inspection, Tongue normal Teeth exam: Normal inspection. negative: Dental caries Throat exam: Normal inspection. negative: Tonsillar erythema, Tonsillar exudate - Neck Neck exam: Normal inspection, Full ROM. negative: Tenderness - Respiratory Respiratory exam: Normal lung sounds bilaterally. negative: Respiratory distress - Cardiovascular Cardiovascular Exam: Regular rate, Normal rhythm, Normal heart sounds - GI/Abdominal GI/Abdominal exam: Soft, Normal bowel sounds, Tenderness - Rectal Rectal exam: Deferred - exam: Deferred - Extremities Extremities exam: Normal inspection, Full ROM, Normal capillary refill. negative: Tenderness - Back Back exam: Reports: Normal inspection, Full ROM. Denies: Muscle spasm, Rash noted, Tenderness - Neurological Neurological exam: Alert, CN II-XII intact, Normal gait, Oriented X3 - Psychiatric Psychiatric exam: Normal affect, Normal mood - Skin Skin exam: Dry, Intact, Normal color, Warm Course Vital Signs 03/21/17 03/21/17 11:02 13:04 Temperature 98.9 F Pulse Rate 72 Pulse Rate [ 59 L Pulse Ox Probe] Respiratory 18 18 Rate Blood Pressure 130/92 Blood Pressure 107/76 [Left Arm] Pulse Ox 98 99 - Reevaluation(s) Reevaluation #1: 03/21/17 15:05 cat scan shows colitis but no diverticulitis. Reevaluation #2: 03/21/17 15:06 pt has an established colorectal surgeon that she is scheduled to see Medical Decision Making - Lab Data Result diagrams: 03/21/17 11:20 03/21/17 11:20 Lab Results 03/21/17 03/21/17 03/21/17 Range/Units 11:20 11:20 11:20 WBC 13.7 H (4.2-12.2) K/uL RBC 5.39 (3.80-5.40) M/uL Hgb 16.4 H (11.6-16.0) gm/dl Hct 47.7 H (35.0-47.0) % MCV 88.5 (81-97) fl MCH 30.4 (27-33) pg MCHC 34.4 (32-36) g/dl RDW 13.1 (11.5-14.5) % Plt Count 333 (130-400) K/uL MPV 10.2 (7.4-10.4) fl Gran % 63.1 (47-80) % Lymphocytes % 25.9 (16-45) % Monocytes % 7.2 (0-9) % Eosinophils % 3.1 (0-6) % Basophils % 0.7 (0-6) % Sodium 140 (136-145) mmol/L Potassium 3.9 (3.5-5.1) mmol/L Chloride 106 (98-107) mmol/L Carbon Dioxide 26.4 (22-30) mmol/L Anion Gap 7.6 (7-16) BUN 10 (7-17) mg/dL Creatinine 0.8 (0.52-1.04) mg/dL Estimated GFR > 60 ml/min Random Glucose 94 (70-110) mg/dL Calcium 9.7 (8.5-10.1) mg/dL Urine Color Yellow Urine Appearance Clear Urine pH 7.5 (5.0-8.0) Ur Specific [place] 1.020 (1.002-1.030) Urine Protein Negative (NEGATIVE) Urine Glucose (UA) Negative (NEGATIVE) Urine Ketones Negative (NEGATIVE) Urine Blood Negative (NEGATIVE) Urine Nitrite Negative (NEGATIVE) Urine Bilirubin Negative (NEGATIVE) Urine Urobilinogen 0.2 (0.20 - 1.00) E.U./dL Ur Leukocyte Esterase Negative (NEGATIVE) Urine HCG, Qual Negative (NEGATIVE) Disposition Disposition: Discharge Clinical Impression: Colitis Disposition: Home, Self-Care Condition: (1) Good Instructions: Colitis (ED) Additional Instructions: follow up with colorectal surgeon. return sooner if worth Prescriptions: Docusate Sodium [Colace] 100 mg PO QHS #20 cap Hydrocodone/Acetaminophen [[place] 5-325 Tablet] 1 each PO Q6HR #10 tablet Amoxicillin/Potassium Clav [Augmentin 875-125 Tablet] 1 tab PO BID #20 tab Forms: Patient Portal Access Quality - Quality Measures Quality Measures: N/A - Blood Pressure Screening Does Patient Have Any of the Following: No Blood Pressure Classification: Hypertensive Reading Systolic Measurement: 130 Diastolic Measurement: 92 Screening for High Blood Pressure: < Pre-Hypertensive BP, F/U Documented > [ G8950] Pre-Hypertensive Follow-up Interventions: Follow-up with rescreen every year.
--- NOTE | 2017-03-23 11:08 | CT SCAN REPORT ---
DATE: 03/21/2017 at 1424 hours. EXAM: CT SCAN OF THE ABDOMEN AND PELVIS WITH CONTRAST. HISTORY: Left lower quadrant abdominal pain. TECHNIQUE: Standard CT imaging of the abdomen and pelvis was performed with oral and intravenous contrast. A total of 100 mL of Omnipaque 300 was administered. COMPARISON: 02/21/2017. FINDINGS: The lung bases are clear. The liver is normal. The gallbladder is surgically absent. There is no biliary ductal dilatation. The pancreas, spleen , and adrenal glands are normal. The kidneys and ureters are unremarkable. The aorta is normal in caliber. There is no lymphadenopathy. The stomach and epigastrium are unremarkable. There are scattered diverticula within the sigmoid colon region. There is no evidence for acute diverticulitis. There is abnormal wall thickening of the descending and sigmoid colon regions suggesting colitis which may be infectious or inflammatory in nature. The remaining portions of the colon appear within normal limits. The small bowel loops are normal in caliber. The appendix is visualized and is unremarkable. There are small functional follicles within both ovaries. The largest is located in the left ovary and measures 1.4 cm in maximum dimension. An IUD is present. The urinary bladder is unremarkable. There are no acute osseus abnormalities. IMPRESSION: 1. ABNORMAL WALL THICKENING OF THE COLON FROM THE DESCENDING THROUGH THE SIGMOID REGIONS SUGGESTING INFECTIOUS OR INFLAMMATORY COLITIS. 2. MILD SIGMOID DIVERTICULOSIS WITH NO EVIDENCE FOR ACUTE DIVERTICULITIS. 3. STATUS POST CHOLECYSTECTOMY. JOB [facility]BER: [id number] [facility]
== END 2017-03-21 15:28 | disposition home or self-care (01) ==
LOC: ER 10:56
DX: K52.9 Noninfective gastroenteritis and colitis, unspecified (principal); R11.2 Nausea with vomiting, unspecified; R10.32 Left lower quadrant pain
CPT/HCPCS: 99284 ×2; 96374; 96375; 96361; 85025; 80048; 81003; 81025; 74177; Q9967; J1885; J2405; J7030

== ENCOUNTER 2018-05-23 15:09 | Emergency (ER) | payer MEDICAID ==
[2018-05-23] MEDS ORDERED: ONDANSETRON HCL IV 4 MG/2 ML VIAL IV ONE (15:38)
[2018-05-23] MEDS ORDERED: 0.9 % SODIUM CHLORIDE 1,000 ML BAG IV ONE (15:38)
[2018-05-23] MEDS ORDERED: KETOROLAC 30 MG/ML VIAL IVP ONE (15:38)
[2018-05-23] MEDS ORDERED: LORAZEPAM 2 MG/ML VIAL IV ONE (15:41)
--- NOTE | 2018-05-23 15:55 | Emergency Department Record ---
History of Present Illness - General Chief Complaint: Headache Migraine Stated Complaint: BEATTY Time Seen by Provider: 05/23/18 15:38 Mode of Arrival: Ambulatory - History of Present Illness Initial Comments: patient states she gets a headache once a month and ususally excedrin takes care of it and sometimes she vomits with them and usually if she goes to bed it gets better. MD Complaint: "Migraine" Onset/Timin -: Hour(s) Onset Description: Awoke with symptoms Location: Frontal Severity: Moderate Severity scale (1-10): 10 Quality: Similar to previous headaches Consistency: Constant Improves With: Nothing Worsens With: None Associated Symptoms: Photophobia, Sensitivity to sound Treatments Prior to Arrival: Other Treatment Prior to Arrival Comment:: exedrin - Related Data Previous Rx's Medication Instructions Recorded Naproxen [Naprosyn] 500 mg PO BID #30 tablet 05/23/18 Allergies Allergy/AdvReac Type Severity Reaction Status Date / Time No Known Drug Allergies Allergy Verified 05/23/18 15:15 Travel Screening - Travel/Exposure Within Last 30 Days Have you traveled within the last 30 days?: No - Travel/Exposure Within Last Year Have you traveled outside the [place] in the last year?: No - Additonal Travel Details Have you been exposed to anyone with a communicable illness?: No - Travel Symptoms Symptom Screening: None Review of Systems Reviewed: No additional complaints except as noted below Constitutional: Reports: As per HPI. Denies: Chills, Fever, Malaise, Night sweats, Weakness, Weight change Eyes: Reports: As per HPI. Denies: Eye discharge, Eye pain, Photophobia, Vision change ENT: Reports: As per HPI. Denies: Congestion, Dental pain, Ear pain, Epistaxis , Hearing loss, Throat pain Respiratory: Reports: As per HPI. Denies: Cough, Dyspnea, Hemoptysis, Stridor, Wheezes Cardiovascular: Reports: As per HPI. Denies: Arrhythmia, Chest pain, Dyspnea on exertion, Edema, Murmurs, Orthopnea, Palpitations, Paroxysmal nocturnal dyspnea, Rheumatic Fever, Syncope Endocrine: Reports: As per HPI. Denies: Fatigue, Heat or cold intolerance, Polydipsia, Polyuria Gastrointestinal: Reports: As per HPI. Denies: Abdominal pain, Constipation, Diarrhea, Hematemesis, Hematochezia, Melena, Nausea, Vomiting Genitourinary: Reports: As per HPI. Denies: Abnormal menses, Discharge, Dyspareunia, Dysuria, Frequency, Hematuria, Incontinence, Retention, Urgency Musculoskeletal: Reports: As per HPI. Denies: Arthralgia, Back pain, Gout, Joint swelling, Myalgia, Neck pain Skin: Reports: As per HPI. Denies: Bruising, Change in color, Change in hair/ nails, Lesions, Pruritus, Rash Neurological: Reports: As per HPI. Denies: Abnormal gait, Confusion, Headache, Numbness, Paresthesias, Seizure, Tingling, Tremors, Vertigo, Weakness Psychiatric: Reports: As per HPI. Denies: Anxiety, Auditory hallucinations, Depression, Homicidal thoughts, Suicidal thoughts, Visual hallucinations Hematological/Lymphatic: Reports: As per HPI. Denies: Anemia, Blood Clots, Easy bleeding, Easy bruising, Swollen glands Past Medical History - SOCIAL HISTORY Smoking Status: Light tobacco smoker (<10/day) Alcohol Use: None Drug Use: None - RESPIRATORY Hx Respiratory Disorders: Yes Hx Asthma: Yes - CARDIOVASCULAR Hx Cardio Disorders: No - NEURO Hx Neuro Disorders: No - GI Hx GI Disorders: Yes Hx Diverticulitis: Yes Hx Reflux: Yes - Hx Genitourinary Disorders: No - ENDOCRINE Hx Endocrine Disorders: No - MUSCULOSKELETAL Hx Musculoskeletal Disorders: No - PSYCH Hx Psych Problems: No - HEMATOLOGY/ONCOLOGY Hx Hematology/Oncology Disorders: No Family Medical History Any Significant Family History?: Yes Hx HTN: Mother Physical Exam - General General Appearance: Alert, Oriented x3, Cooperative, No acute distress - Head Head exam: Normal inspection - Eye Eye exam: Normal appearance, PERRL Pupils: Normal accommodation - ENT ENT exam: Normal exam, Mucous membranes moist, Normal external ear exam, Normal orophraynx, TM's normal bilaterally Ear exam: Normal external inspection. negative: External canal tenderness Nasal Exam: Normal inspection. negative: Discharge, Sinus tenderness Mouth exam: Normal external inspection, Tongue normal Teeth exam: Normal inspection. negative: Dental caries Throat exam: Normal inspection. negative: Tonsillar erythema, Tonsillar exudate - Neck Neck exam: Normal inspection, Full ROM. negative: Tenderness - Respiratory Respiratory exam: Normal lung sounds bilaterally. negative: Respiratory distress - Cardiovascular Cardiovascular Exam: Regular rate, Normal rhythm, Normal heart sounds - GI/Abdominal GI/Abdominal exam: Soft, Normal bowel sounds. negative: Tenderness - Rectal Rectal exam: Deferred - exam: Deferred - Extremities Extremities exam: Normal inspection, Full ROM, Normal capillary refill. negative: Tenderness - Back Back exam: Reports: Normal inspection, Full ROM. Denies: Muscle spasm, Rash noted, Tenderness - Neurological Neurological exam: Alert, Normal gait, Oriented X3, Reflexes normal - Psychiatric Psychiatric exam: Normal affect, Normal mood - Skin Skin exam: Dry, Intact, Normal color, Warm Course Vital Signs 05/23/18 15:17 Temperature 97.7 F Pulse Rate 56 L Respiratory 18 Rate Blood Pressure 130/77 Pulse Ox 97 - Reevaluation(s) Reevaluation #1: 05/23/18 16:17 feeling better Disposition Clinical Impression: Migraines Qualifiers: Migraine type: without aura Status migrainosus presence: without status migrainosus Intractability: not intractable Qualified Code(s): G43.009 - Migraine without aura, not intractable, without status migrainosus Disposition: Home, Self-Care Condition: (1) Good Instructions: Migraine Headache (ED) Additional Instructions: follow up with family Dr in 2-3 days Prescriptions: Naproxen [Naprosyn] 500 mg PO BID #30 tablet Forms: Patient Portal Access Time of Disposition: 16:17 Quality - Quality Measures Quality Measures: N/A, Headache (All Ages) - Headache: Neuroimaging Quality Measure: Measure #419: Overuse of Neuroimaging ICD10 Codes Entered: Yes Neurological Exam: Patient had a normal neurological exam. [G9535] Headache: Use of Neuroimaging: < CTA, CT, MRA or MRI was NOT ordered > [G9534] - Blood Pressure Screening Does Patient Have Any of the Following: No Blood Pressure Classification: Pre-Hypertensive BP Reading Systolic Measurement: 130 Diastolic Measurement: 77 Screening for High Blood Pressure: < Pre-Hypertensive BP, F/U Documented > [ G8950] Pre-Hypertensive Follow-up Interventions: Referral to alternative/primary care provider.
== END 2018-05-23 16:30 | disposition home or self-care (01) ==
LOC: ER 15:09
DX: G43.009 Migraine without aura, not intractable, without status migrainosus (principal); H53.149 Visual discomfort, unspecified; F17.210 Nicotine dependence, cigarettes, uncomplicated
CPT/HCPCS: 99284 ×2; 96374; 96375; J1885; J2405; J2060; J7030